=== PATIENT | male | born 1980 | race Caucasian/White ===

== ENCOUNTER → 2021-12-10 | Emergency (ER) | payer OTHER | END | disposition left against medical advice (07) | LOC: ER 18:18 | DX: Z53.21 Procedure and treatment not carried out due to patient leaving prior to being seen by health care provider (principal) ==

== ENCOUNTER 2021-12-11 09:12 | Emergency (ER) | payer OTHER ==
[~2021-12-11] VITALS: Ht 170.2 cm; Wt 70.3 kg
== END 2021-12-11 13:50 | disposition home or self-care (01) ==
LOC: ER 09:12
DX: B34.9 Viral infection, unspecified (principal); E86.0 Dehydration; Z20.822 Contact with and (suspected) exposure to COVID-19